=== PATIENT | female | born 1985 | race Caucasian/White ===

== ENCOUNTER 2017-02-26 11:40 | Emergency (ER) | payer OTHER ==
[~2017-02-26] VITALS: Ht 170.2 cm; Wt 120.5 kg
[~2017-02-26 11:40] MED LIST: CHOL10002 PO; Ibuprofen PO; PREN1TAB80 PO; [UNRECOGNIZED DRUG - CODE] PO
[2017-02-26 11:42] VITALS: BP 147/91; PULSE 90; RESP 16; O2SAT 98
[2017-02-26] MEDS ORDERED: NORE1TAB63 PO (11:46)
[2017-02-26] MEDS ORDERED: CETI10CA PO (11:46)
[2017-02-26] MEDS ORDERED: MULT1CAP33 PO (11:46)
[2017-02-26] MEDS ORDERED: 0.9% Sodium Chloride 1,000 ML IV ONE (11:55)
[2017-02-26] MEDS ORDERED: Ondansetron 2 mg/mL 2 mL Inj IVPUSH ONE (11:55)
--- NOTE | 2017-02-26 11:57 | ED.REPORT ---
HPI-Abd Pain F Under 40 Date of Service Feb 26, 2017 ED Provider: Hari Allison MD Rekha is an otherwise healthy 31-year-old female presenting with a chief complaint of abdominal pain. Patient reports throwing a republican Friday night and afterwards noting bilateral upper abdominal pain, radiating around to her back associated with 2 episodes of nonbloody vomiting and several episodes of pale diarrhea. Admits to one drink at the republican. Reports nausea aggravated by drinking or eating. Admits to previous episode of similar symptoms which lasted approximately 6 hours. Denies fever, malaise, melena, hematochezia, hematuria, dysuria, back pain, history of abdominal surgeries, unexplained weight loss or other complaints. Nursing Notes Stated Complaint: ABDOMINAL PAIN Chief Complaint: Female Abdominal Pain Nursing Notes Reviewed: Yes Allergies: Coded Allergies: No Known Allergies (Unverified , 02/26/17) Scheduled Cetirizine HCl (Zyrtec) 10 Mg Capsule 10 MG PO HS Cholecalciferol (Vitamin D3) (Vitamin D) 1,000 Unit Capsule 1,000 UNIT PO DAILY Cyanocobalamin (Vitamin B-12) (Vitamin B-12) 500 Mcg Tab.subl 500 MCG SL DAILY Multivitamin (Multivitamins) 1 Each Capsule 1 EACH PO DAILY Norethindrone A-E Estradiol (Microgestin) 1 Each Tablet 1 TAB PO DAILY Scheduled PRN Ibuprofen (Ibuprofen) 200 Mg Capsule 200 MG PO QID PRN PRN For Pain General Time Seen by MD: 11:50 Chief Complaint Abdominal pain Past Medical History Smoking History Never Smoker Review of Systems General: Denies fever, chills, malaise. HEENT: Denies congestion, headache, sore throat. Respiratory: Denies dyspnea, cough, shortness of breath, wheezing. Cardiovascular: Denies chest pain, palpitations. Gastrointestinal: Admits vomiting, diarrhea, abdominal pain. Genitourinary: Denies frequency, urgency, dysuria, hematuria. Otherwise as noted in HPI. Physical Exam General: Well appearing, well developed, well nourished, no acute distress. Head: Atraumatic, normocephalic. Eyes: No scleral icterus or injection. No discharge. Vision grossly intact. ENT: Voice clear, hearing grossly intact. Respiratory: Regular rate and rhythm. No respiratory distress. No increased work of breathing, speaks in complete sentences. Cardiovascular: Regular rate and rhythm, without murmur, gallop or rub. No pedal edema. Gastrointestinal: Normal to inspection. Moderate tenderness with Caldwell sign in the right upper quadrant. Bowel sounds normoactive. Skin: Warm and dry. Neurological: Normal gait, Grossly nonfocal. Psychological: Alert and oriented. Speech appropriate, linear and logical. Behavior appropriate. Initial Vital Signs Vital Signs (First) Date Time Temp Pulse Resp B/P Pulse Ox O2 Delivery O2 Flow Rate FiO2 02/26/17 11:42 37.0 90 16 147/91 98 Room Air Elevated blood pressure Interpretation & Diagnostics Lab Results Interpretation Result Diagram: 02/26/17 1200 02/26/17 1200 Test 02/26/17 12:00 02/26/17 12:02 White Blood Count 7.6th/mm3 (3.8-10.1) Red Blood Count 5.24mil/mm3 (3.90-5.20) Hemoglobin 14.9g/dL (12.0-15.6) Hematocrit 43.6% (35.0-46.0) Mean Corpuscular Volume 83.2fL (81-100) Mean Corpuscular Hemoglobin 28.4pg (27.0-35.0) Mean Corpuscular Hemoglobin Concent 34.2% (32.0-37.0) Red Cell Distribution Width 13.8% (12.3-15.4) Platelet Count 313bil/L (150-400) Neutrophils (%) (Auto) 76.7% (40-74) Lymphocytes (%) (Auto) 12.6% (14-46) Monocytes (%) (Auto) 6.9% (4-12) Eosinophils (%) (Auto) 3.0% (0-5) Basophils (%) (Auto) 0.7% (0-3) Sodium Level 135mEq/L (134-144) Potassium Level 3.8mEq/L (3.5-5.2) Chloride Level 101mEq/L (97-108) Carbon Dioxide Level 20mmol/L (18-29) Blood Urea Nitrogen 6mg/dL (6-20) Creatinine 0.57mg/dL (0.57-1.00) Estimat Glomerular Filtration Rate 176mL/min (>59) Glucose Level 103mg/dL (60-99) Calcium Level 9.0mg/dL (8.5-10.1) Magnesium Level 2.0mg/dL (1.6-2.6) Total Bilirubin 3.1mg/dL (0.0-1.2) Aspartate Amino Transf (AST/SGOT) 232U/L (0-50) Alanine Aminotransferase (ALT/SGPT) 398U/L (0-32) Alkaline Phosphatase 154U/L (25-150) Total Protein 7.4g/dL (6.4-8.4) Albumin 4.0g/dL (3.4-5.0) Lipase 41U/L (13-60) Hold Forrest Top Tube Received (Received) Urine Color Dark yellow (YELLOW) Urine Appearance Hazy (CLEAR,HAZY) Urine pH 6.0 (5.0-8.0) Urine Specific [place] 1.015 (1.003-1.035) Urine Protein Negativemg/dL (NEG,TRACE) Urine Glucose (UA) Negativemg/dL (NEGATIVE) Urine Ketones Negativemg/dL (NEGATIVE) Urine Occult Blood Trace (NEGATIVE) Urine Nitrite Negative (NEGATIVE) Urine Bilirubin Moderate (NEGATIVE) Urine Ictotest Pos (Negative) Urine Urobilinogen Normalmg/dL (NORMAL) Urine Leukocyte Esterase Negative (NEGATIVE) Urine RBC 0-2/hpf (0-2) Urine WBC 0-5/hpf (0-5) Urine Epithelial Cells Occasional/hpf (NONE-MOD) Urine Crystals None seen (NONE SEEN) Urine Bacteria None/hpf (NONE-FEW) Urine Hyaline Casts None/lpf (NONE) Urine Granular Casts None seen (NONE SEEN) Urine Waxy Casts None seen (NONE SEEN) Urine Red Blood Cell Casts None seen (NONE SEEN) Urine White Blood Cell Casts None seen (NONE SEEN) Urine Mucus None seen (None Seen) Urine Trichomonas None seen (NONE SEEN) Urine Yeast None (NONE SEEN) Urinalysis Comment None Urine Culture Reflexed Not indicated US Focused Biliary PROCEDURE: US ABDOMEN INDICATIONS: right upper abdominal tenderness IMPRESSION: 1. Diffusely increased hepatic echotexture. This finding is most likely secondary to hepatic fatty infiltration although other hepatocellular disease may have a similar appearance. Recommend clinical correlation. 2. Cholelithiasis. No ultrasound evidence for acute cholecystitis. 3. Borderline dilation of common bile duct. Please correlate with serum bilirubin. Exam Performed by: Radiologist Re-Eval/Medical Decision Med Decision/Clinical Course Otherwise healthy 31-year-old female presents with approximately 2 days of upper abdominal pain radiating to her back. Posterior vomiting and pale diarrhea. Denies fever, chest pain, respiratory symptoms, urinary symptoms. Patient reports a history of similar symptoms that resolved on their own. Physical exam reveals right upper quadrant tenderness with Caldwell sign. Vital signs are normal. Suspicious for cholelithiasis. Order CBC, CMP, lipase, U preg, UA, ultrasound. Treatment initiated with 1 L normal saline, ondansetron, Vicodin. CBC reveals total bilirubin elevated at 3.1, AST elevated at 232, ALT elevated at 398 alkaline phosphatase elevated at 154. UA is remarkable for moderate urine bilirubin, positive ictotest and otherwise reassuring against infection. CBC is negative for leukocytosis although there is a mild left shift. U preg is negative. Ultrasound reveals cholelithiasis without evidence of cholecystitis, borderline dilation of common duct. I discussed this case with Dr. Allison, as well as Drs. Mendosa and Jovan. Consensus is that the patient should be transferred to [facility] as she may require ERCP, which is not currently available here. Transfer is arranged by Dr. Allison, and the patient departs via BLS in stable condition. Consultation #1: Referral / Consult Name: Harsh Aldana MD Call Returned at: 14:11 Note: Request patient be admitted to hospitalist service, will consult. Request GI consult as well. Consultation #2: Referral / Consult Name: Mahamed Mendosa MD Call Returned at: 14:34 Note: Dr. Mendosa is concerned that the patient needs ERCP, he will not be able to help her. He requested we talk again after I received the final ultrasound results. Consultation #3: Referral / Consult Name: Swati Sandoval MD Consulted With: Hospitalist Call Returned at: 15:37 Note: Discussed the case, including Dr. Mendosa's concerns. Dr. sandoval requests one dose of IV Zosyn, talk again after consultation with Dr. Mendosa. Discharge & Departure Primary Impression: Elevated transaminase level Additional Impressions: Right upper quadrant pain Common bile duct calculus Gallstones Referrals: Milly Mallory CNM (PCP) EDSupervising Provider for APC: Hari Allison MD Attending Statment Attending attestation: I saw this patient in conjunction with Gildardo Abdul PA-C. In summary the patient presents with right upper quadrant pain, slightly dilated common bile duct and elevated transaminases. Patient seen and evaluated by gastroenterology Dr. Mendosa. It is felt that the patient would benefit most from transfer to a facility with ability to perform ERCP. I discussed this with the accepting physician at [facility] and all EMTALA paperwork was completed. The patient was transferred in stable condition. Gildardo Valenzuela MD, PA-C Feb 26, 2017 11:57 Hari Allison MD Feb 26, 2017 23:44
[2017-02-26 12:09] LABS: BASOPHILS % (AUTO) 0.7 % (0-3); MONOCYTES % (AUTO) 6.9 % (4-12); Mean Corpuscular Hemoglobin 28.4 pg (27.0-35.0); Mean Corpuscular Volume 83.2 fL (81-100); NEUTROPHILS % (AUTO) 76.7 % (40-74); Platelet Count 313 bil/L (150-400)
[2017-02-26 12:20] LABS: APPEARANCE,URINE HAZY (CLEAR,HAZY); COLOR,URINE DARK YELLOW (YELLOW)
[2017-02-26] MEDS ORDERED: HYDROcodone-APAP 5-325 mg Tablet PO ONE ×2 (12:20→16:15)
[2017-02-26 12:21] LABS: ICTOTEST,URINE POS (Negative); OCCULT BLOOD,URINE TRACE (NEGATIVE); UROBILINOGEN,URINE NORMAL (NORMAL)
[2017-02-26 14:17] VITALS: BP 125/71; PULSE 74; RESP 18; O2SAT 100
[2017-02-26] MEDS ORDERED: CHOL100045 PO (14:24)
[2017-02-26] MEDS ORDERED: CYAN500T53 SL (14:24)
[2017-02-26] MEDS ORDERED: IBUP200C PO (14:24)
[2017-02-26] MEDS ORDERED: Ondansetron 2 mg/mL 2 mL Inj IVPUSH PRN (15:20)
--- NOTE | 2017-02-26 15:22 | DRSVH ---
PROCEDURE: US ABDOMEN INDICATIONS: right upper abdominal tenderness TECHNIQUE: Real-time scanning was performed of the abdominal and retroperitoneal organs, with image documentatio n. COMPARISON: None. FINDINGS: Liver length: 17.62 cm Gallbladder Wall Thickness: 1.70 mm CHD: 3.40 mm CBD: 8 mm Spleen length: 10.54 cm Right kidney length: 11.83 cm Left kidney length: 13.41 cm Aorta(Proximal): 2.14 cm Aorta(Mid): 2.28 cm Aorta(Distal): 1.92 cm RCIA: 1.4 cm LCIA: 1.4 cm Liver: Liver is normal in size and demonstrates diffusely increased echotexture. Gallbladder: There are gallstones. No gallbladder wall thickening, pericholecystic fluid or sonograp hic Caldwell's sign. Biliary ducts: Intrahepatic bile ducts are non-dilated. Extrahepatic bile duct caliber is borderlin e dilated. Normal is 6-7 mm or less in diameter, or 10 mm or less post-cholecystectomy. Pancreas: Visualized portions of the pancreas are sonographically normal. Spleen: Spleen is normal in size and homogeneous in echotexture. Kidneys: Kidneys are normal in size and echotexture. No hydronephrosis or nephrolithiasis. No jeana d masses. Aorta: Visualized aorta is normal in caliber at less than 3 cm. Iliacs: Proximal common iliac arteries are normal in caliber at less than 2.5 cm. IVC: Intrahepatic inferior vena cava is patent. Miscellaneous: No free abdominal fluid. IMPRESSION: 1. Diffusely increased hepatic echotexture. This finding is most likely secondary to hepatic fatty i nfiltration although other hepatocellular disease may have a similar appearance. Recommend clinical c orrelation. 2. Cholelithiasis. No ultrasound evidence for acute cholecystitis. 3. Borderline dilation of common bile duct. Please correlate with serum bilirubin. Dictated by: Latonia Marrufo M.D. on 02/26/2017 at 15:16 Approved by: Latonia Marrufo M.D. on 02/26/2017 at 15:19
[2017-02-26] MEDS ORDERED: Piperacillin-Tazo 3.375 Gm Inj 3.375 GM in Dextrose 5% Minibag Plus 50 ML IV ONE (15:35)
[2017-02-26] MEDS ORDERED: HYDROmorphone 0.5 mg/0.5 mL iSecure Syringe IVPUSH STA (16:31)
[2017-02-26 18:31] VITALS: BP 131/54; PULSE 82; RESP 16; O2SAT 95
--- NOTE | 2017-02-27 07:06 | CONS ---
[address] [address] CONSULTATION REPORT PATIENT: JAMAICA BURTON : 1985 MR#: [id number] ADMIT: 02/26/2017 JOB ID: [id number] DATE OF SERVICE: 02/26/2017 REASON FOR CONSULTATION: It was a pleasure seeing the patient at [facility] for abdominal pain. HISTORY OF PRESENT ILLNESS: This is a 31-year-old lady who came in with abdominal pain. The only thing that she takes is Zyrtec, multivitamin, B12 supplements, and Microgestin, as well as occasional ibuprofen for pain. She came in today with abdominal pain. She reports having a democrat Friday evening and afterwards started having bilateral upper abdominal pain described as a crampy type sensation. Intensity can get up to 9/10. Radiating to the sides as well as to her back. This was associated with a couple of episodes of vomiting and this was also followed by pale diarrhea. After the democrat, she reports more nausea by any kind of eating or drinking, and pain also was triggered and worsened with eating food. Since Friday night there was a significant decrease in p.o. intake as well as water. She came to the hospital because her last episode lasted 6 hours. Essentially when it happens nothing seems to make it better or worse, 9/10 pain. She was given pain medication in the ER, it improved it. Fifteen minutes before I saw her she was also having 9/10 pain and she was given pain medication, which seems to have somewhat controlled the abdominal pain. She denies any fever or chills, chest pain, shortness of breath, blood in the stools, black stools, skin rash, joint pain, weight loss, dysuria, hematuria, hematochezia. PAST MEDICAL HISTORY: Noncontributory. PAST SURGICAL HISTORY: Noncontributory. SOCIAL HISTORY: Never smoked. Occasional alcohol. FAMILY HISTORY: Noncontributory. PHYSICAL EXAMINATION: Vitals include temp of 37, pulse 90, respirations 16, blood pressure 147/91. Head and neck: There is slight icterus. Lungs: Clear. Cardiovascular: Regular rate and rhythm. Normal S1 and S2. Abdomen: Soft. Epigastric and right upper quadrant tenderness with positive Caldwell sign. Nondistended, with normoactive bowel sounds. There was no guarding, rebound, or firmness. Extremities: No pitting edema of the ankles. Skin shows some slight yellowness. Radial pulses bilateral strong and intact. LABORATORY DATA: White count 7600, hemoglobin 14.9, platelets 113,000. Chemistry shows her bilirubin is 3.1, AST 232, ALT 398, alk phos 154. Ultrasound was done, which showed that the common bile duct, when I spoke with the radiologist, was 7.2 mm in size. Otherwise it appears that she has fatty infiltrate of the liver and there are gallstones in the gallbladder but no evidence of cholecystitis. IMPRESSION and PLAN: This is a 31-year-old lady with sudden onset of abdominal pain after eating who seems to be passing a stone. Her LFTs are elevated, with bilirubin being elevated as well to 3.1. Her pain seems to be well under control only if she takes pain medication, but without the pain medication she has continuous 9/10 pain. Common bile duct 7.2 mm, which is quite generous for her age. It is difficult to tell whether she passed a stone or not; however, I gave her two options, which are to stay here and see how she does. If her liver function tests go persistently higher and higher, with uncontrolled pain, then definitely she needs to be transferred for ERCP. However, if her abdominal pain improves and liver function tests show improvement, it is most likely she passed the stone and she could have cholecystectomy here and do an intraoperative cholangiogram. After the conversation, she wanted to be transferred to the ERCP facility just in case she has a retained stone. [place]
== END 2017-02-26 18:32 | disposition short-term general hospital (02) ==
LOC: SED 11:40 → OSC 15:43 → UNDOADMOB 15:43 → SED 18:32
DX: R74.0 Nonspecific elevation of levels of transaminase and lactic acid dehydrogenase [LDH] (principal); K80.70 Calculus of gallbladder and bile duct without cholecystitis without obstruction; R03.0 Elevated blood-pressure reading, without diagnosis of hypertension
CPT/HCPCS: 36415; 76700; 80053; 81000; 81025; 83690; 83735; 85025; 96361; 96365; 96375; 99285; J1170; J2405; J2543; J7030